=== PATIENT | male | born 1995 | race Hispanic/Latino ===

== ENCOUNTER 2022-12-18 22:25 | Emergency (ER) | payer SELFPAY ==
[~2022-12-18] VITALS: Ht 193 cm; Wt 145.1 kg
[2022-12-18 23:00] VITALS: O2SAT 99
[2022-12-18] MEDS ORDERED: MEDROL4 M2 PO (23:02)
[2022-12-18] MEDS ORDERED: DEXAMETHASONE SOD PHOS 10 MG/1 ML VIAL IM ONE (23:15)
== END 2022-12-18 23:45 | disposition home or self-care (01) ==
LOC: ER 22:50
DX: R21 Rash and other nonspecific skin eruption (principal); L25.9 Unspecified contact dermatitis, unspecified cause
CPT/HCPCS: 99282; J1100

== ENCOUNTER 2024-09-07 14:58 | Emergency (ER) | payer SELFPAY ==
[~2024-09-07] VITALS: Ht 193 cm; Wt 136.1 kg
[~2024-09-07 14:58] MED LIST: MEDROL4 M2 PO
[2024-09-07 15:19] VITALS: PULSE 75; RESP 18; TEMP 97.7; O2SAT 99
[2024-09-07] MEDS ORDERED: TRIAMCINOLONE A15 G1 TOP (15:22)
[2024-09-07] MEDS: DEXAMETHASONE 4 MG TAB PO STA (15:33)
== END 2024-09-07 15:37 | disposition home or self-care (01) ==
LOC: ER 15:27
DX: L23.7 Allergic contact dermatitis due to plants, except food (principal); F17.210 Nicotine dependence, cigarettes, uncomplicated
CPT/HCPCS: 99283; J8540